=== PATIENT | male | born 2000 | race Caucasian/White ===

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

== ENCOUNTER 2021-09-20 00:06 | Emergency (ER) | payer OTHER ==
[2021-09-20] MEDS ORDERED: Lactated Ringers 1,000 ML IV ONE (00:09)
[2021-09-20] MEDS ORDERED: diphenhydrAMINE 50 MG/ML SDV IVPUSH ONE (00:22)
[2021-09-20] MEDS ORDERED: Haloperidol Lactate 5 MG/ML SDV IM ONE (00:22)
[2021-09-20] MEDS ORDERED: Ondansetron 4 MG/2 ML SDV IVPUSH ONE (00:34)
[2021-09-20] MEDS ORDERED: Dextrose 5%-Lactated Ringers 1,000 ML IV SCH (00:45)
[2021-09-20 01:08] LABS: ACETAMINOPHEN <2.0 ug/mL; BLOOD UREA NITROGEN,BUN 8 mg/dL (7.0-18.0); CARBON DIOXIDE,CO2 23.4 mmol/L (21.0-32.0); CHLORIDE,CL 103 mmol/L (98-107); GLUCOSE RANDOM 112 mg/dL (74-106); LIPASE 73 U/L (73-393); POTASSIUM,K 3.8 mmol/L (3.5-5.1); SODIUM,NA 143 mmol/L (136-148)
[2021-09-20] MEDS ORDERED: Nicotine 21 MG/24 Hr Patch TRDERM ONE (09:04)
== END 2021-09-20 09:20 ==
LOC: MW.ED 00:06
DX: R45.851 Suicidal ideations (principal); F32.9 Major depressive disorder, single episode, unspecified; F10.129 Alcohol abuse with intoxication, unspecified; Y90.7 Blood alcohol level of 200-239 mg/100 ml
CPT/HCPCS: 36415; 80053; 80143; 80179; 80305; 80307; 81001; 83690; 83735; 85025; 87635; 93005; 96374; 99285; A9270; J2405; J7120; J7121; 99284; U0002

== ENCOUNTER 2021-09-25 12:31 | Emergency (ER) | payer OTHER ==
[2021-09-25] MEDS ORDERED: Sodium Chloride 0.9% 1,000 ML IV ONE (12:32)
[2021-09-25 13:20] LABS: BLOOD UREA NITROGEN,BUN 14 mg/dL (7.0-18.0); CARBON DIOXIDE,CO2 27.7 mmol/L (21.0-32.0); CHLORIDE,CL 101 mmol/L (98-107); GLUCOSE RANDOM 93 mg/dL (74-106); POTASSIUM,K 4.3 mmol/L (3.5-5.1); SODIUM,NA 139 mmol/L (136-148)
[2021-09-25 13:34] LABS: CORONAVIRUS COVID-19 NAA NEGATIVE (NEGATIVE); INFLUENZA A NAA NEGATIVE (NEGATIVE); INFLUENZA B NAA NEGATIVE (NEGATIVE)
== END 2021-09-25 15:13 | disposition home or self-care (01) ==
LOC: MW.ED 12:31
DX: Z00.00 Encounter for general adult medical examination without abnormal findings (principal); Z20.822 Contact with and (suspected) exposure to COVID-19
CPT/HCPCS: 0240U; 36415; 70450; 71045; 80053; 80307; 83605; 83735; 84484; 85025; 86140; 93005; 99285; J7030; 93010; 99283